=== PATIENT | male | born 1975 | race Caucasian/White ===

== ENCOUNTER 2024-04-15 22:09 | Emergency (ER) | payer OTHER, SELFPAY ==
[2024-04-15 22:11] VITALS: BP 141/96; PULSE 100; RESP 18; TEMP 36.5; O2SAT 98; BMI 32.5
[2024-04-16 00:05] VITALS: BP 133/97; PULSE 100; RESP 20; TEMP 37; O2SAT 98
--- NOTE | 2024-04-16 00:06 | ED_ITS ---
HPI - Wound/Laceration General Chief Complaint: Wound/Laceration Stated Complaint: left leg wound Time Seen by Provider: 04/16/24 00:04 Source: patient Mode of arrival: ambulatory Limitations: no limitations History of Present Illness ED Provider: Shannan PRAJAPATI narrative: Patient is a 48-year-old male presenting to the ED with complaint of laceration to left thigh which occurred around 8pm. States that he was accidentally stuck with a broken piece of glass. removed the glass all in one piece and he denies concern for foreign body. He is unsure of last tetanus vaccine but is refusing Tdap today. Reports mild pain. Denies any numbness or tingling. Denies any decreased ROM to leg. Onset (ago): hour(s) Extremity Location: left: thigh Place: home Patient tetanus UTD: No Context: accidental Associated symptoms: pain Treatments prior to arrival: bandage Related Data Allergies Allergy/AdvReac Type Severity Reaction Status Date / Time No Known Allergies Allergy Verified 04/15/24 22:13 Review of Systems Review of Systems: As per HPI. Yes all other systems are reviewed and are negative Constitutional: Constitutional: Reports as per HPI [facility] Social History Social History Smoked in Last 30 Days: No Use of substances other than those prescribed or required for medical reasons: No Advance Directives: No Advance Directives Information Provided: Yes Do you have a plan to hurt others: No Plan Physical Exam Vital Signs: Vital Signs: Last Vital Signs Temp 98.6 F 04/16/24 00:05 Pulse 100 04/16/24 00:05 Resp 20 04/16/24 00:05 BP 133/97 H 04/16/24 00:05 Pulse Ox 98 04/16/24 00:05 O2 Del Method Room Air 04/16/24 00:05 BMI result Body Mass Index 32.5 Vital signs have been reviewed and appear to be correct. Blood pressure normal. Heart rate normal. Respiratory rate normal. Temperature normal. Oxygen saturation normal. Const: General: cooperative, healthy appearing and no acute distress Orientation/consciousness: oriented to person, oriented to place, oriented to time and patient oriented x3 Limitations: no limitations HEENT: Head: Yes normocephalic and Yes atraumatic Ears: external ears normal General nose exam: Normal external nose present Face and sinus: Yes face symmetric Mouth: oropharynx normal and moist mucous membranes Throat: Yes uvula midline Eyes: Pupils: Equal, round and reactive pupils present Neck: Neck: Yes normal visual inspection and Yes supple Resp: Effort & Inspection: normal respiratory effort and able to speak in complete sentences Auscultation: clear to auscultation bilaterally Cardio: Rate: regular rate Rhythm: regular rhythm Heart sounds: S1 normal heart sound present and S2 normal heart sound present GI: Palpation (GI): Soft to palpation and nontender Auscultation: normoactive bowel sounds : General: Yes no CVA tenderness Back/Spine/Pelvis: Back: no CVA tenderness Skin: General skin exam: elasticity normal and turgor normal Neuro: General: oriented to person, oriented to place, oriented to time, patient oriented x3, moves all extremities, no focal motor deficits and CN's II- XI intact bilaterally Cranial nerves: Yes Equal, round and reactive pupils present Cognition (Neuro): normal cognition Motor exam (neuro): 5/5 motor strength present throughout Extrem: General: Yes full ROM, Yes no pedal edema and Yes no calf tenderness Left lower extremity: hip/thigh Details: normal ROM and laceration mid upper leg lateral Details: linear (2cm) and involving subcutaneous tissue; no foreign body present and not contaminated Psych: Mental Status: mental status grossly normal Affect: normal affect Thought process: Normal thought process present Medications Administered Discontinued Medications Generic Name Dose Route Start Last Admin Trade Name Freq PRN Reason Stop Dose Admin Diphtheria/Tetanus/Acell Pertussis 0.5 ml 04/16/24 00:03 04/16/24 00:13 Diphth,Pertus(Acell),Tet Adult 0.5 Ml Syringe IM 04/16/24 00:04 Not Given .ONCE ONE Lidocaine HCl 10 ml 04/16/24 00:03 04/16/24 00:14 Lidocaine Hcl 1 % Mpf 5 Ml Vial INFILTRATI 04/16/24 00:04 10 ml ONCE ONE Administration Medical Decision Making Medical Decision Making [facility] Narrative: Patient is a 43-year-old female with history of anxiety and panic attacks presenting to the emergency department with episode of acute chest tightness and difficulty breathing prior to arrival. On exam patient is awake, A+Ox3, VS WNL, afebrile, normal neurological exam without focal deficits, physical exam findings as above. Given reported symptoms and physical exam findings, initial differential includes left thigh laceration. Patient refusing Tdap. Denies concern for foreign body and wound appears subcutaneous. Laceration repaired as per procedure note. Wound care and return precautions discussed at bedside. Patient verbalized understanding of and agreement with plan. Differential Diagnosis Differential Diagnoses: The differential diagnosis associated with the presentation includes as per mdm External Record Review External record reviewed: Inpatient record, Office record and Outpatient record Procedures Laceration Laceration 1: Site: lower extremity Side (If applicable): left Size (cm): 2 Description: linear Depth: simple, single layer Local Anesthetic: lidocaine 1% Amount of anesthesia used (mL): 5 Pre-repair: wound explored, irrigated extensively and deep structures intact Skin layer closed with: nylon Size (cm): 5-0 Number of sutures: 5 Technique: simple, interrupted Discharge Plan Discharge Clinical Impression: Laceration of left thigh Patient Disposition: Home, Self-Care Instructions: Care For Your Stitches (DC), Laceration (DC), Stitches Removal (ED) Additional Instructions: You have been evaluated in the emergency department today for a laceration to your leg. Your laceration was repaired in the emergency department with sutures. Please keep the area surrounding the laceration clean and dry and keep dressing in place for the next 24 hours. After that please change the dressing and assess the wound daily. Do not submerge your leg in water until the stitches are out and the wound is fully healed (no swimming, hot tubs). Keep the area out of direct sunlight for the next 6 months to help prevent scarring. You should have the sutures removed in 7-10 days. If you develop fever, redness, swelling at the site of your laceration, or thick yellow drainage please come back to the ER for a wound check. Print Language: Slovak
[2024-04-16] MEDS: Lidocaine HCl 1 % MPF 5 ML VIAL 10 ML INFILTRATI (00:14)
--- NOTE | 2024-04-16 00:15 | PC.NURSE ---
Lidocaine given by provider to wound site. , pt refused tdap and provider is aware.
[2024-04-16 01:35] VITALS: BP 133/97; PULSE 100; RESP 20; TEMP 37; O2SAT 98
== END 2024-04-16 01:35 | disposition home or self-care (01) ==
PROVIDERS: Emergency Provider Internal Medicine
DX: S71.112A Laceration without foreign body, left thigh, initial encounter (principal); W25.XXXA Contact with sharp glass, initial encounter; Y93.9 Activity, unspecified; Y92.9 Unspecified place or not applicable; Y99.9 Unspecified external cause status
CPT/HCPCS: 12001; 99284